=== PATIENT | female | born 1960 | race Hispanic/Latino ===

== ENCOUNTER 2020-12-22 07:35 | Emergency (ER) | payer OTHER, SELFPAY ==
--- NOTE | ~2020-12-22 | XR_ITS ---
EXAMINATION: XR foot RT min 3V EXAM DATE: 12/22/2020 08:03 INDICATION: Right foot nail. Right 5th plantar region entry site. Initial encounter. TECHNIQUE: Right forearm frontal and lateral projections obtained and reviewed. There is no prior st udy for comparison. FINDINGS: There are no acute right foot fractures or dislocations identified. There is no subcutaneo us gas. The soft tissue is unremarkable. There are no radiopaque foreign bodies. IMPRESSION: 1. Unremarkable right foot exam. Reviewed, dictated and finalized at location A.
[2020-12-22 07:45] VITALS: BP 173/96; PULSE 86; RESP 16; TEMP 36.8; O2SAT 100
--- NOTE | 2020-12-22 07:55 | ED.WOUNDLAC ---
HPI - Wound/Laceration General Chief Complaint: Wound/Laceration Stated Complaint: stepped on nail Time Seen by Provider: 12/22/20 07:47 Source: patient Mode of arrival: ambulatory Limitations: no limitations History of Present Illness HPI narrative: Patient drove herself to the emergency room because of pain at the right foot after stepping on a nail 12 hours ago. Barefoot. Approximately 1 inch nail. Patient did not see if the nail is new or old. Was just taken out of wood board. Unknown tetanus shot. Related Data Home Medications Medication Instructions Recorded Confirmed ibuprofen 400 mg tablet 400 mg PO TID 09/15/19 09/17/19 Allergies Allergy/AdvReac Type Severity Reaction Status Date / Time codeine AdvReac Nausea Verified 09/15/19 10:43 Review of Systems Review of Systems: Narrative: CONSTITUTIONAL: Denies fever, chills, or sweats. EYES: Denies visual changes, redness, or discharge. ENT: Denies rhinorrhea, congestion, sore throat, or otalgia. CARDIOVASCULAR: Denies chest pain, palpitations, or edema. RESPIRATORY: Denies cough or dyspnea. GASTROINTESTINAL: Denies abdominal pain, nausea, vomiting, or diarrhea. GENITOURINARY: Denies dysuria or hematuria. SKIN: Denies rash or itching. MUSCULOSKELETAL: Denies back pain, joint pain, or myalgia. NEUROLOGIC: Denies headache, numbness, or weakness. PSYCHIATRIC: Denies anxiety or depression. FORMERLY [facility] Past Medical History Medical History (Updated 12/22/20 @ 08:04 by Mallory Rossi MD) HTN (hypertension) Family History Family History Mother Hypertension Gout Father Gout Hypertension Social History Social History Smoking status: Former smoker Tobacco type: cigarettes and e-cigarettes/vaping Alcohol intake: never Substance use: never Substance use type: does not use Gender identity (if verbalized by the patient): Female Spiritual care concerns: No Agree to blood products: Yes Exam Narrative: Exam Narrative: General appearance: Well-developed, well-nourished Skin: Normal color, right foot showed a puncture wound 3 x 3 mm circumference at the plantar side anteriorly. Surrounded by swelling and diffuse tenderness Chest and respiratory: Airway patent, no respiratory distress, no accessory muscle use Heart: Regular rate/rhythm Vascular: Normal peripheral pulses, normal capillary refill. Musculoskeletal: Normal range of motion, nontender back Neurologic: Alert and oriented ?3, Course Course Emergency Course: Stable Vital Signs Vital signs: Vital Signs Temperature 36.8 C 12/22/20 07:45 Pulse Rate 86 12/22/20 07:45 Respiratory Rate 16 12/22/20 07:45 Blood Pressure 173/96 H 12/22/20 07:45 Pulse Oximetry 100 12/22/20 07:45 Temperature 36.8 C 12/22/20 07:45 Pulse Rate 86 12/22/20 07:45 Respiratory Rate 16 12/22/20 07:45 Blood Pressure 173/96 H 12/22/20 07:45 Pulse Oximetry 100 12/22/20 07:45 MDM - Wound/Laceration MDM Narrative Medical decision making narrative: X-ray right foot, tetanus shot, Dilaudid 60 mg IM ordered. 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 Differential Diagnosis Differential diagnosis: Likely other (Infected puncture wound) Imaging Data Radiologist's impression: Impressions Foot X-Ray 12/22/20 08:05 IMPRESSION: 1. Unremarkable right foot exam. Critical Care Time Critical Care Time Critical Care Time: No Discharge Plan Discharge Clinical Impression: Puncture wound Patient Disposition:
[2020-12-22] MEDS: KETOROLAC (*BKC) 60 MG/2 ML VIAL IM (08:41)
[2020-12-22] MEDS: TETANUS,DIPHTHERIA,AC PERTUSSIS ADULT (0.5 ML) BOOSTRIX IM (08:49)
== END 2020-12-22 08:53 | disposition home or self-care (01) ==
PROVIDERS: Emergency Provider Emergency Medicine
DX: S91.339A Puncture wound without foreign body, unspecified foot, initial encounter (principal); Z23 Encounter for immunization; I10 Essential (primary) hypertension; Z87.891 Personal history of nicotine dependence; W45.0XXA Nail entering through skin, initial encounter
CPT/HCPCS: 73630; 90471; 90715; 96372; 99283; J1885

== ENCOUNTER 2025-06-17 21:53 | Emergency (ER) | payer SELFPAY ==
[2025-06-17] VITALS (14 sets, daily range): BP systolic 115–227; BP diastolic 43–133; PULSE 38–85; RESP 16–29; TEMP 35.9–36.4; O2SAT 93–100
--- NOTE | ~2025-06-17 | CT_ITS ---
EXAMINATION: CTA brain carotid DATE: 06/17/2025 23:11 INDICATION: Cerebrovascular accident. TECHNIQUE: Computed tomographic angiography (CTA) of the head was performed with 100 mL Omnipaque-350 intravenous contrast. CTA of the neck was performed with intravenous contrast. Automated exposure control and iterative reconstruction technique were employed. The dose-length product was 935.20 mGy-cm. Maximum intensity projection and volume rendered 3D-reconstructions were created by the technologist on a separate workstation. COMPARISON: Head CT 06/17/2025 FINDINGS: HEAD CTA: There are old infarcts in the bilateral basal ganglia. There is no intracranial hemorrhage, acute infarction, or abnormal intracranial mass lesion. The ventricles are normal in size. There is mild mucosal thickening in the paranasal sinuses. The orbits are normal. The mastoid air cells are normal. There is cerumen in the right external auditory canal. Left vertebral artery is dominant. There is no significant stenosis of basilar artery or the posterior cerebral arteries. There is no significant stenosis of the intracranial internal carotid arteries or anterior or middle cerebral arteries. Anterior communicating artery is normal. The posterior communicating arteries are normal. There is no aneurysm. NECK CTA: There is a dissection of the ascending and descending aorta. There is no significant stenosis of the vertebral arteries. There is plaque in the proximal internal carotid arteries. There is 0% stenosis of the proximal right internal carotid artery relative to normal distal artery lumen diameter (NASCET criteria). There is 0% stenosis of the proximal left internal carotid artery relative to normal distal artery lumen diameter. There is a 12 mm nodule in left thyroid lobe, likely not clinically significant. There is severe cervical spondylosis. IMPRESSION: 1. Type A aortic dissection. 2. Old lacunar infarcts in the bilateral basal ganglia. 3. No aneurysm or significant intracranial arterial stenosis. 4. 0% stenosis of the proximal internal carotid arteries relative to normal distal artery lumen diameters (NASCET criteria). Reviewed, dictated and finalized at location E. OGICAL ECONOMIST IMPRESSION: 1. Type A aortic dissection. 2. Old lacunar infarcts in the bilateral basal ganglia. 3. No aneurysm or significant intracranial arterial stenosis. 4. 0% stenosis of the proximal internal carotid arteries relative to normal dis amanda artery lumen diameters (NASCET criteria).
--- NOTE | ~2025-06-17 | CT_ITS ---
CT HEAD NON-CONTRAST Clinical History: cva symptoms Comparison: CT brain 06/17/2015 Technique: Unenhanced axial images skull base to vertex Coronal, sagittal reformats CT images acquired with automatic exposure control for dose reduction DLP: 605 mGy-cm Findings: White matter changes, typically chronic microvascular ischemic disease. Basal ganglia lacunae. Sulci, ventricles: Unremarkable. No intracerebral hemorrhage. No evidence acute territorial infarct. No mass effect, midline shift. Bony calvarium intact. Visualized paranasal sinuses: Clear. Mastoid air cells: Clear. IMPRESSION: 1. No acute intracranial findings. Reviewed, dictated and finalized at location R. VE BOTTOM FELLER
--- NOTE | ~2025-06-17 | CT_ITS ---
CTA CHEST ABDOMEN PELVIS CLINICAL HISTORY: dissection . COMPARISON: CT abdomen pelvis 08/03/2019 TECHNIQUE: Helical CT performed from thoracic inlet to symphysis pubis 180 mL IV contrast Coronal, sagittal reformats. Multiplanar MIPS CT images acquired with automatic exposure control for dose reduction DLP: 455 mGy-cm FINDINGS: CHEST- Severe respiratory motion artifact. Thoracic Aorta: Type I dissection from aortic root throughout entire thoracic aorta extending into abdomen. Great vessels off of arch patent, from true lumen. Pulmonary arteries: Normal caliber. Lungs/Pleura: Clear. Heart: Unremarkable. Tracheobronchial tree: Patent. Nodes: No enlarged nodes. Bones: No acute bony abnormality. Soft tissues: Unremarkable. ABDOMEN/PELVIS- CTA Abdominal aorta: Continuation of thoracic dissection, with true lumen smaller along left lateral portion with more dense contrast enhancement. Common iliac arteries: Patent. Dissection flap continues into left side. External iliac arteries: Patent. Dissection flap continues into left side, with only false lumen. Hypogastric arteries: Patent. CFAs: Patent. Proximal visualized SFAs and profundas: Patent. Celiac: Patent. True lumen. SMA: Patent. True lumen. RICHARD: Patent. True lumen. Renal arteries: Patent. True lumen. NON-CTA Liver: Unremarkable. Gallbladder: Unremarkable. Spleen: Unremarkable. Pancreas: Unremarkable. Adrenal glands: Unremarkable. Kidneys: Areas of heterogeneous enhancement. Right kidney- No hydronephrosis. No renal stones. Cortical thinning. Left kidney- No hydronephrosis. No renal stones. Cortical thinning. Large cyst. Distal esophagus/stomach: Unremarkable. Small bowel loops: Normal caliber and wall thickness. Colon: Diverticula. Normal caliber and wall thickness. Normal RLQ appendix. Nodes: No enlarged nodes. Peritoneum: No ascites. No free air. Urinary bladder: Mild wall thickening but under distended. Uterus: Unremarkable. Adnexa: No masses. Bones: No acute bony abnormality. Soft tissues: Unremarkable. IMPRESSION: CHEST- 1. Type A dissection of thoracic aorta. Recommend vascular surgery consultation. ABDOMEN/PELVIS- 1. Continuation of dissection throughout entire abdominal aorta extending into left external iliac artery, the latter supplied only by false lumen. 2. Additional findings as above. Reviewed, dictated and finalized at location R. LANE FUELER IMPRESSION: CHEST- 1. Type A dissection of thoracic aorta. Recommend vascular surgery consultatio n. ABDOMEN/PELVIS- 1. Continuation of dissection throughout entire abdominal aorta extending into left external iliac artery, the latter supplied only by false lumen. 2. Additional findings as above.
--- NOTE | ~2025-06-17 | XR_ITS ---
Examination: XR chest 1V portable Clinical History: cva symptoms Comparison: None Technique: Portable AP Findings: Heart size normal. Lungs clear. No acute bony abnormality. IMPRESSION: 1. No acute cardiopulmonary findings given portable technique. Reviewed, dictated and finalized at location R. ER SUPERVISOR
--- NOTE | 2025-06-17 22:03 | ECG_ITS ---
Test Date: 2025-06-17 22:03:26 Measurements Intervals [place] Rate: 42 P: 198 IA: 130 QRS: 159 QRSD: 96 T: 135 QT: 553 QTc: 463 Interpretive Statements SINUS BRADYCARDIA LIMB LEAD REVERSAL BASELINE ARTIFACT- II, V1 ABNORMAL ECG No previous ECG available for comparison Electronically Signed On 06-18-2025 09:19:02 [employer] by Heath Mahmood D.O.
--- NOTE | 2025-06-17 22:20 | ED_ITS ---
HPI - General Adult General Chief complaint: Fall Stated complaint: fall Time Seen by Provider: 06/17/25 22:02 Source: patient Mode of arrival: EMS Limitations: no limitations History of Present Illness HPI narrative: Patient is a 64-year-old female presents to the emergency department complaining of back pain, weakness, cold right leg via EMS and a fall. Patient was reportedly walking up the stairs when her back started hurting severely and felt weak. Patient was trying to get on her bed when she fell. Patient is complaining of right-sided cold leg and left leg weakness. Admits to chest pain and nausea. Physicians throw up but can not. EMS noted the patient on the ground in her house with no heat. Denies use of blood thinners. Pain started about 1 hour prior to arrival. Weakness started about 1 hour prior to arrival. Related Data Home Medications ?Medication ?Instructions ?Recorded ?Confirmed ?Last Taken ?Type ibuprofen 400 mg tablet 400 mg PO TID 09/15/1909/16 Unknown History Allergies Allergy/AdvReac Type Severity Reaction Status Date / Time codeine AdvReac Nausea Verified 09/15/19 10:43 Review of Systems 2 Review of Systems: A 10 system review of systems was completed on the patient and is negative except for what is stated in the HPI. Nursing and ancillary documentation was reviewed. FORMERLY [facility] Past Medical History Medical History (Updated 06/17/25 @ 23:16 by Alfred Cordova DO) HTN (hypertension) Family History Family History Mother Hypertension Gout Father Gout Hypertension Social History Social History Smoking status: Former smoker Tobacco type: cigarettes and e-cigarettes/vaping Alcohol intake: never Alcohol use details: none used recently Substance use: never Substance use type: does not use Gender identity (if verbalized by the patient): Female Spiritual care concerns: No Agree to blood products: Yes Exam 2 Narrative: CONST: drowsy , arouses to verbal stimuli. HENMT: Head is normocephalic and atraumatic. Tacky mucous membranes. No posterior oropharynx erythema. EYES: No scleral icterus. No conjunctival injection or pallor. PERRL. NECK: No meningeal signs. RESP: Able to speak in full sentences. Normal respiratory effort. CTAB. CARDIO: Bradycardic rate. Regular rhythm. 2+ DP and radial pulses bilaterally. GI: Nondistended. No tenderness to palpation. Soft. : No CVA tenderness to palpation. SKIN: No rashes or lesions noted on exposed skin. Distal extremities are cool to the touch. NEURO: Oriented x3. Difficulty following commands making NIH stroke scale limited, appears to have difficulty doing [id number]-[id number] with the right leg, unable to perform hjgb-[id number]-wbtd with the left leg is she can not move her left leg, no apparent drift to the right leg, no dysmetria with sbszxv-rk-kxxi testing bilaterally, no drift of the bilateral upper extremities, appears to have some extinction on the left, gaze is midline, extraocular motions are intact, no nystagmus, no facial asymmetry, speech is clear and fluent. EXTREM/MSK/BACK: No pedal edema. Course Course Emergency Course: 23:00 - my initial preliminary interpretation of the CT shows a extensive aortic dissection, patient informed of this result, or pain medications, blood pressure goals less than 120, heart rate goals of 60-80, [facility] access line contacted, pending call back at this time. Helicopter on standby. 23:24: No call back for [facility] at this time, [facility] access line contacted. Patient has been ordered esmolol and pain medications. Blood pressure is elevated at 208/59, esmolol pending. Patient's heart rate is now elevated up to the 80s, esmolol pending. 2330 - Connected with CT surgery over at [facility] who to send the patient from ER to ER, was connected with the ER doctor [place] who has accepted the patient for transfer. [facility]opter is en route. Nicardipine ordered. 00:20 - [facility] called and note that they do not have any OR availability, helicopter is here, recommend trying other facilities. U contacted again, spoke with CT surgery and ER physician Dr. White who has accepted the patient for transfer. Vital Signs Vital signs: Vital Signs Pulse Rate 66 06/17/25 23:03 Respiratory Rate 16 06/17/25 23:03 Temperature 96.6 F L 06/17/25 23:20 Pulse Rate 80 06/18/25 01:00 Respiratory Rate 15 06/18/25 01:00 Blood Pressure 167/61 H 06/18/25 01:00 Pulse Oximetry 98 06/18/25 01:33 Oxygen Delivery Room Air 06/17/25 23:12 MDM MDM Narrative Medical decision making narrative: Patient presents with the above complaint. Initial vitals are remarkable for Bradycardia, blood pressure 115/43. Physical examination as noted above. Plan discussed: stat CTs obtained of the head and CTA head and neck and CT chest abdomen pelvis due to concern for possible stroke or dissection. NIH performed, difficult to discern however was overall a 9. Patient does have pulses in all 4 extremities. Patient having severe back pain. Laboratory analysis is been ordered, pain medications, continues cardiac monitoring, continuous pulse oximetry. Patient returned from CT complaining of severe back pain, heart rate is now in the 80s to 90s, blood pressure is now severely elevated in the 200 systolic and greater than 100s diastolic. Pain medications ordered. Review of the CT is showing an aortic dissection, Esmolol ordered. CTA of the head preliminary findings radiology report is no evidence of acute large vessel occlusion. Patent anterior, middle and posterior cerebral arteries. CTA of the neck preliminary findings radiology impression is patent carotid and vertebral arteries without evidence of dissection or high-grade stenosis. CTA of the chest abdomen pelvis preliminary findings radiology report is type a aortic dissection from the aortic root ascending to the left external iliac artery, supplied by the false lumen. Patent great vessels arising from a single trunk off the aortic arch supplied by the true lumen. Patent celiac artery and SMA/ RICHARD supplied by the true lumen. Patent bilateral renal arteries. Subtle renal cortical low-attenuation changes possibly artifact versus ischemia or infection. No obstructive uropathy. Urinary bladder wall thickening, nonspecific. Correlate with urinalysis. Mild enteritis. No bowel obstruction. Diverticulosis. CT of the head without contrast preliminary findings radiology impression is right basal ganglia low-attenuation change, age-indeterminate infarct. Correlate clinically. Otherwise no acute intracranial hemorrhage, mass effect or midline shift. Chronic microvascular ischemic changes. Old left basal ganglia lacunar infarct. Extensive time spent with patient working on blood pressure and heart rate and pain and critical interventions for this aortic dissection and also coordinating care with multiple calls and consultations and coordinating transfer. Thrombolytics were not administered given patient has an aortic dissection. Differential Diagnosis Differential Diagnosis: CVA, hypothermia, symptomatic bradycardia, ACS, pulmonary embolism, aortic dissection. Medical Records I have reviewed the following patient records and this information was taken into consideration when formulating the assessment and plan.: previous ER visits Lab Data [facility] Lab Attestation statement: I personally reviewed the patient's lab results. Lab results narrative: CBC reveals a white blood cell count 23.4. Coags reveal PT of 18.1 an APTT of 47.1. Comprehensive metabolic panel is sodium 136, glucose 189, AST of 112, ALT of 52, alkaline phosphatase 166. BNP is 539. CRP 0.7. Total creatine kinase is 45. Troponin is 0.060. Lipase 111. Ethyl alcohol is less than 10. Lactic acid is 4.3. UDS is positive for cocaine and cannabinoids. Urinalysis with 2+ protein, trace glucose, 3+ blood, greater than 100 RBCs, 6-10 wbc's. test is negative. TSH is 10.2, free T4 is 1.76 and total T3 is 1.29. Magnesium is 2.0. Phosphorus is 2.9. 06/17/25 22:35 06/17/25 22:36 Labs: Lab Results 06/17/25 06/17/25 06/17/25 Range/Units 22:21 22:35 22:36 WBC 23.4 H (4.5-10.0) K/mm3 RBC 4.96 (4.2-5.4) M/mm3 Hgb 14.0 (12.0-15.0) g/dL Hct 43.8 (37.0-47.0) % MCV 88.3 (80-100) fl MCH 28.2 (26-34) pg MCHC 32.0 (32-36) g/dl RDW 15.8 H (11.5-14.5) % Plt Count 271 D (150-375) k/mm3 MPV 9.5 (7.4-10.4) fl Immature Gran % (Auto) 0.8 H (0-0.5) % Neut % (Auto) 86.2 H (45.5-73.1) % Lymph % (Auto) 7.9 L (18.3-44.2) % [place] % (Auto) 4.0 (2.6-8.5) % Eos % (Auto) 0.7 (0-4.4) % Baso % (Auto) 0.4 (0.2-1.2) % Lymph # (Auto) 1.86 (0.9-3.2) K/mm3 [place] # (Auto) 0.9 H (0.1-0.6) K/mm3 Eos # (Auto) 0.2 (0-0.3) K/mm3 Baso # (Auto) 0.1 (0.0-0.1) K/mm3 Abs Immat Gran (auto) 0.18 H (0.00-0.031) K/mm3 Absolute Neuts (auto) 20.2 H (1.3-6.7) K/mm3 Absolute Nucleated RBC 0.000 (0.0-0.012) K/mm3 Band Neutrophils % Not Reportable Nucleated RBC % 0.0 (0.0-0.2) % Platelet Estimate Adequate (Adequate) Anisocytosis 1+ Schistocytes None seen PT 18.1 H (11.1-14.7) Seconds INR 1.5 APTT 47.1 H (22.3-36.8) Seconds Sodium 136 L (137-145) mmol/L Potassium 3.4 (3.4-5.0) mmol/L Chloride 106 (98-107) mmol/L Carbon Dioxide 22 (22-30) mmol/L Anion Gap 8 (4-12) mmol/L BUN 16 (7-17) mg/dL Creatinine 0.96 (0.7-1.0) mg/dL Estim Creat Clear Calc Not Reportable Estimated GFR 59 (59 - ) Glucose 189 H (65-110) mg/dL POC Capillary Glucose 155 H (65-105) mg/dl Lactic Acid 4.3 H* (0.7-2.0) mmol/L Calcium 8.7 (8.4-10.2) mg/dL Phosphorus 2.9 (2.5-4.5) mg/dL Magnesium 2.0 (1.6-2.3) mg/dL Total Bilirubin 1.2 (0.2-1.3) mg/dL AST 112 H (14-36) U/L ALT 52 H (6-35) U/L Alkaline Phosphatase 166 H (38-126) U/L Total Creatine Kinase 45 (30-135) U/L Troponin I 0.060 H* (0.000-0.034) ng/mL C-Reactive Protein 0.7 (<1.0) mg/dL NT-Pro-B Natriuret Pep 539 H (19.9-100) pg/mL Total Protein 7.5 (6.3-8.2) g/dL Albumin 4.2 (3.5-5.1) g/dL Lipase 111 (23-300) U/L TSH (Reflex) 10.200 H (0.465-4.68) uIU/mL Free T4 1.76 (0.78-2.19) ng/dL Total T3 1.29 (0.82-1.58) NG/ML Serum HCG, Qual Negative Urine Color (Yellow) Urine Appearance (Clear) Urine pH (5.0-9.0) Ur Specific [place] (1.001-1.035) Urine Protein (Negative) mg/dL Urine Glucose (UA) (Negative) mg/dL Urine Ketones (Negative) mg/dL Ur Blood (Man) (Negative) Urine Nitrate (Negative) Urine Bilirubin (Negative) Urine Urobilinogen (<2.0) mg/dL Leukocyte Esterase Rfl (Negative) JENY/UL Urine RBC (0-2) /hpf Urine WBC (0-3) /hpf Ur Squamous Epith Cells (Few) /hpf Urine Bacteria /hpf Urine Casts POC Urine HCG, Qual (Negative) Urine Opiates Screen (Negative) Urine Methadone Screen (Negative) Ur Barbiturates Screen (Negative) Ur Phencyclidine Scrn (Negative) Ur Amphetamine Screen (Negative) U Benzodiazepines Scrn (Negative) Urine Cocaine Screen (Negative) U Cannabinoids Screen (Negative) Ethyl Alcohol < 10 (<10) mg/dL Blood Type A Positive Antibody Screen Negative Crossmatch See Detail 06/17/25 06/17/25 Range/Units 23:29 23:33 WBC (4.5-10.0) K/mm3 RBC (4.2-5.4) M/mm3 Hgb (12.0-15.0) g/dL Hct (37.0-47.0) % MCV (80-100) fl MCH (26-34) pg MCHC (32-36) g/dl RDW (11.5-14.5) % Plt Count (150-375) k/mm3 MPV (7.4-10.4) fl Immature Gran % (Auto) (0-0.5) % Neut % (Auto) (45.5-73.1) % Lymph % (Auto) (18.3-44.2) % [place] % (Auto) (2.6-8.5) % Eos % (Auto) (0-4.4) % Baso % (Auto) (0.2-1.2) % Lymph # (Auto) (0.9-3.2) K/mm3 [place] # (Auto) (0.1-0.6) K/mm3 Eos # (Auto) (0-0.3) K/mm3 Baso # (Auto) (0.0-0.1) K/mm3 Abs Immat Gran (auto) (0.00-0.031) K/mm3 Absolute Neuts (auto) (1.3-6.7) K/mm3 Absolute Nucleated RBC (0.0-0.012) K/mm3 Band Neutrophils % Nucleated RBC % (0.0-0.2) % Platelet Estimate (Adequate) Anisocytosis Schistocytes PT (11.1-14.7) Seconds INR APTT (22.3-36.8) Seconds Sodium (137-145) mmol/L Potassium (3.4-5.0) mmol/L Chloride (98-107) mmol/L Carbon Dioxide (22-30) mmol/L Anion Gap (4-12) mmol/L BUN (7-17) mg/dL Creatinine (0.7-1.0) mg/dL Estim Creat Clear Calc Estimated GFR (59 - ) Glucose (65-110) mg/dL POC Capillary Glucose (65-105) mg/dl Lactic Acid (0.7-2.0) mmol/L Calcium (8.4-10.2) mg/dL Phosphorus (2.5-4.5) mg/dL Magnesium (1.6-2.3) mg/dL Total Bilirubin (0.2-1.3) mg/dL AST (14-36) U/L ALT (6-35) U/L Alkaline Phosphatase (38-126) U/L Total Creatine Kinase (30-135) U/L Troponin I (0.000-0.034) ng/mL C-Reactive Protein (<1.0) mg/dL NT-Pro-B Natriuret Pep (19.9-100) pg/mL Total Protein (6.3-8.2) g/dL Albumin (3.5-5.1) g/dL Lipase (23-300) U/L TSH (Reflex) (0.465-4.68) uIU/mL Free T4 (0.78-2.19) ng/dL Total T3 (0.82-1.58) NG/ML Serum HCG, Qual Urine Color Yellow (Yellow) Urine Appearance Clear (Clear) Urine pH 8.0 (5.0-9.0) Ur Specific [place] 1.020 (1.001-1.035) Urine Protein 2+ H (Negative) mg/dL Urine Glucose (UA) Trace H (Negative) mg/dL Urine Ketones Negative (Negative) mg/dL Ur Blood (Man) 3+ H (Negative) Urine Nitrate Negative (Negative) Urine Bilirubin Negative (Negative) Urine Urobilinogen 0.2 (<2.0) mg/dL Leukocyte Esterase Rfl Negative (Negative) JENY/UL Urine RBC >100 H (0-2) /hpf Urine WBC 6-10 H (0-3) /hpf Ur Squamous Epith Cells None seen (Few) /hpf Urine Bacteria None seen /hpf Urine Casts 0-2 POC Urine HCG, Qual Negative (Negative) Urine Opiates Screen Negative (Negative) Urine Methadone Screen Negative (Negative) Ur Barbiturates Screen Negative (Negative) Ur Phencyclidine Scrn Negative (Negative) Ur Amphetamine Screen Negative (Negative) U Benzodiazepines Scrn Negative (Negative) Urine Cocaine Screen Positive A (Negative) U Cannabinoids Screen Positive A (Negative) Ethyl Alcohol (<10) mg/dL Blood Type Antibody Screen Crossmatch ABG Data ABG results: 06/17/25 22:24 VBG pH 7.317 VBG pCO2 45.2 VBG pO2 39.6 VBG HCO3 22.6 L O2 Delivery Device Room air O2 Liters/Min 0.0 FiO2 21 Imaging Data Attestation: I personally reviewed and interpreted this imaging study as follows: My impression: Aortic dissection. ECG Data EKG #1: Attestation: I personally reviewed and interpreted this ECG as follows: ECG completion date: 06/17/25 ECG completion time: 22:03 Interpretation: Rate of 42, rhythm is indeterminate but appears to be an ectopic atrial bradycardia, left posterior fascicular block, minimal voltage criteria for LVH, minimal ST depression in leads V3, borderline ST elevation in lead 2, T-wave inversion present in leads 1 in aVL, prolonged QTC with a QTC interval of 493 milliseconds, QRS duration is 96 milliseconds, [place] interval of 130 milliseconds. Critical Care Time Critical Care Time Critical Care Time: Yes Indication: Aortic dissection, cardiac failure, OTA failure, circulatory failure, dysrhythmia. Time Type: Continuous Initial evaluation, discuss w/ involved parties, attempting to gather old records: 20 minutes Documenting medical record: 15 minutes Review of results (EKG's, labs, imaging): 15 minutes Serial repeat bedside evaluation: 30 minutes Discussing case with multiple memebers of the care team and consultants: 20 minutes Total Critical Care Time: 100 Discharge Plan Discharge Clinical Impression: Aortic dissection Qualifiers: Aortic location: unspecified Qualified Code(s): I71.00 - Dissection of unspecified site of aorta Patient Disposition: Acute Care Hospital Condition: Critical Patient Language: Greenlandic Prescriptions: No Action ibuprofen 400 mg tablet 400 mg PO TID ciprofloxacin HCl [Cipro] 500 mg tablet 500 mg PO Q12H Qty: 20 0RF tramadol 50 mg tablet 50 mg PO Q4H PRN (Reason: pain) Qty: 20 0RF Follow-up/Referrals: PHYSICIAN,NAPRAPATH [Primary Care Provider, Internal Medicine] Time of Disposition: 00:20 Quality Stroke Date of last known normal: 06/17/25 Time of last known normal: 21:10 Stroke Scale Stroke Scale 1: Stroke scale date:: 06/17/25 Stroke scale time:: 22:10 1a Level of consciousness: not alert but arousable-1 1b Level of consciousness questions: answers both correctly-0 1c Level of consciousness commands: obeys both correctly-0 2 Best gaze: normal-0 3 Visual: no visual loss-0 4 Facial palsy: normal-0 5a Motor: left arm: no drift-0 5b Motor: right arm: no drift-0 6a Motor: left leg: no movement-4 6b Motor: right leg: some effort/gravity-2 7 Limb ataxia: present in one limb-1 (RLE, unable to test LLE. Absent in BUE. ) 8 Sensory: normal-0 9 Best language: no aphasia-0 10 Dysarthria: normal-0 11 Extinction and inattention: partial inattention-1 Level:: 9
[2025-06-17 22:54] LABS: Hematocrit 43.8 % (37.0-47.0); Hemoglobin 14.0 g/dL (12.0-15.0); Immature Granulocyte Percent A 0.8 % (0-0.5); Lymphocytes Absolute Auto 1.86 K/mm3 (0.9-3.2); Mean Corpuscular HGB Conc 32.0 g/dl (32-36); Mean Corpuscular Hemoglobin 28.2 pg (26-34); Mean Corpuscular Volume 88.3 fl (80-100); Nucleated Red Blood Cells Absolute Auto 0.000 K/mm3 (0.0-0.012); Nucleated Red Blood Cells Perc 0.0 % (0.0-0.2); Platelet Count Result 271 k/mm3 (150-375); Red Blood Count 4.96 M/mm3 (4.2-5.4); White Blood Count 23.4 K/mm3 (4.5-10.0)
--- NOTE | 2025-06-17 23:01 | PC.NURSE ---
As this RN was walking over to the main side, pt was coming back from CT with other RN and states, CT says she is having a dissection. EDP . ED HOUSEKEEPING ASSOCIATE cami states, go and get a unit of emergency blood. at this time the lab had not resulted yet. This RN grabbed Emergent release blood form and went down to lab to get unit of blood. when this RN returned, blood was ready to go until EDP reports to have it on standby in case of need, but not to start it. At 23:45 this RN filled out PCS form and transfer form for [facility] ED. ETA for [facility] was 26 minutes. Once team arrived, reports was given. one of the flight team members spoke with Dr. Cordova on target BP level after pt being on nicardipine and esmolol. see other nurses note on esmolol. This RN was then informed that [facility] actually has no OR's available and pt will now be going to [facility] ED. This RN then re-did PCS and transfer form. Misti RN called report. pt was then transported over to [facility] ED with nicardipine and esmolol.
[2025-06-17 23:05] LABS: INR 1.5; Prothrombin Time 18.1 Seconds (11.1-14.7)
[2025-06-17 23:06] LABS: Partial Thromboplastin Time 47.1 Seconds (22.3-36.8)
[2025-06-17 23:07] LABS: pH VBG 7.317 (7.300-7.400)
[2025-06-17] MEDS: SODIUM CHLORIDE 0.9% IV 1,000 ML 999 ML IV CONT (23:07)
[2025-06-17 23:08] LABS: Alanine Aminotransferase 52 U/L (6-35); Albumin Level 4.2 g/dL (3.5-5.1); Alkaline Phosphatase 166 U/L (38-126); Anion Gap 8 mmol/L (4-12); Aspartate Amino Transferase 112 U/L (14-36); Bilirubin,Total 1.2 mg/dL (0.2-1.3); Blood Urea Nitrogen 16 mg/dL (7-17); CRP 0.7 mg/dL (<1.0); Calcium 8.7 mg/dL (8.4-10.2); Carbon Dioxide 22 mmol/L (22-30); Chloride 106 mmol/L (98-107); Creatine Kinase 45 U/L (30-135); Estimated Glomerular Filt Rate 59; Glucose 189 mg/dL (65-110); Lipase 111 U/L (23-300); Magnesium 2.0 mg/dL (1.6-2.3); Potassium 3.4 mmol/L (3.4-5.0); Sodium 136 mmol/L (137-145); Total Protein 7.5 g/dL (6.3-8.2)
[2025-06-17 23:08] LABS: Fractional Inspired Oxygen 21 %; HCO3 VBG 22.6 mEq/l (24.0-30.0); Liters per Minute 0.0 LPM; PCO2 VBG 45.2 mmHg (42.0-48.0); PO2 VBG 39.6 mmHg (35.0-45.0)
[2025-06-17] MEDS: HYDROmorphone HCL INJ (*CRX) 1 MG/ML SYR IV PUSH (23:08)
[2025-06-17 23:16] LABS: Anisocytosis 1+; Schistocytes None Seen
[2025-06-17 23:20] LABS: NT Pro B Type Natriuretic Pept 539 pg/mL (19.9-100); Troponin I 0.060 ng/mL (0.000-0.034)
[2025-06-17 23:25] LABS: SPREG INTERNAL CONTROL Positive; Serum Qual hCG Negative
[2025-06-17 23:34] LABS: BEDSIDEPREGUCG Negative (Negative)
[2025-06-17 23:38] LABS: Thyroid Stimulating Hormone Reflex 10.200 uIU/mL (0.465-4.68)
[2025-06-17 23:39] LABS: Add Urine Microscopic? YES; Appearance Urine Clear (Clear); Glucose Urine UA Trace mg/dL (Negative); Leukocyte Esterase Ur Negative LEU/UL (Negative); Nitrate Urine Negative (Negative); Non Pathogenic Casts 0-2; Specific Grav Ur 1.020 (1.001-1.035)
--- OUTSIDE RECORDS SUMMARY | 2025-06-17 23:48 | XMS_ITS | Clinical Summary ---
Author Organization [facility] Address [address] [place] [id number] Care Team Providers Care Personalized Living Manager Nurse Name Role Phone Unavailable Primary Care Provider Unavailabl e Social History Tobacco Use Types Packs/Day Years Used Date Smoking Tobacco: Never Assessed Comments Unknown Sex and Gender Information Value Date Recorded Sex Assigned at Not on file Legal Sex Female 7:39 PM CDT Gender Identity Not on file Sexual Orientation Not on file Plan of Treatment Health Maintenance Due Date Last Done Comments Cervical Cancer Screening Pa p Smear (Age 30 to 64) Every 3 Years 1962 Colorectal Cancer Screening Colonoscopy (10 Years) 1962 Annual Physical 1965 Hepatitis C 1980 DTaP, Tdap and Td Vaccines ( 1 - Tdap) 1981 Cervical Cancer Screening Pa p with HPV Testing (Age 30 to 64) Every 5 Years 1992 Cervical Cancer Screening with HPV 1992 Mammogram Screening 2002 Pneumococcal Vaccine: 50+ Ye ars (1 of 1 - PCV) 2012 Zoster Vaccines (1 of 2) 2012 COVID-19 Vaccine ( - 2024-2 6 season) 2025 Influenza Adult (#1) 2025 RSV Immunization or 60+ Years (1 - 1-dose 75+ series) 2037 Hepatitis A Vaccines Aged Out No long er eligible based on patient's age to complete this topic Meningococcal B Vaccine Aged Out No l onger eligible based on patient's age to complete this topic Meningococcal Vaccine Aged Out No rodolfo mehdi eligible based on patient's age to complete this topic RSV Immunizations Under 20 Months Aged Out No longer eligible based on patient's age to complete this topic
[2025-06-17] MEDS: ESMOLOL HCL 100 MG/10 ML VIAL 30.65 MG IV PUSH (23:50)
[2025-06-17 23:54] LABS: Cannabinoid Screen Urine Positive (Negative)
[2025-06-18] VITALS: BP 148/133; PULSE 48; PULSE 52; RESP 25
[2025-06-18 00:15] VITALS: PULSE 70; RESP 15
[2025-06-18 00:24] LABS: Free T4 Free Thyroxine Reflex 1.76 ng/dL (0.78-2.19)
[2025-06-18 00:30] VITALS: PULSE 85; RESP 22
--- NOTE | 2025-06-18 00:35 | PC.NURSE ---
per Misti RN, EDP VORB stopping esmolol. at 0045 EDP VORB starting esmolol at same rate due to elevated BP.
[2025-06-18 00:45] VITALS: BP 167/61; PULSE 52
[2025-06-18 01:00] VITALS: BP 167/61; PULSE 80; RESP 15; O2SAT 99
[2025-06-18 01:10] LABS: Total Triiodothyronine (T3) 1.29 NG/ML (0.82-1.58)
[2025-06-18 01:33] VITALS: O2SAT 98
== END 2025-06-18 00:55 | disposition short-term general hospital (02) ==
LOC: ANHED 23:47
PROVIDERS: Registered Nurse; Emergency Provider Student in an Organized Health Care Education/Training Program
DX: I71.03 Dissection of thoracoabdominal aorta (principal); I10 Essential (primary) hypertension; Z87.891 Personal history of nicotine dependence; R00.1 Bradycardia, unspecified
CPT/HCPCS: 36415; 36430; 70450; 70496; 70498; 71045; 71275; 74175; 80053; 80307; 81001; 81025; 82077; 82550; 82803; 82948; 83605; 83690; 83735; 83880; 84100; 84439; 84443; 84480; 84484; 84703; 85025; 85610; 85730; 86140; 86850; 86900; 86901; 86920; 87086; 93005; 96361; 96365; 96375; 99291; J1171; J2404; J7030; P9016; Q9967